=== PATIENT | female | born 1980 | race Caucasian/White ===

== ENCOUNTER 2017-11-13 18:25 | Emergency (ER) | payer MEDICAID ==
--- NOTE | 2017-11-13 19:59 | ED Physician Documentation ---
History of Present Illness - Stated complaint Stated Complaint: R KNEE PX - Chief complaint Chief Complaint: Ext Problem - History obtained from History obtained from: Patient, Family - History of Present Illness Timing: How many weeks ago (1) Pain level max: 6 Pain level now: 6 - Additonal information Additional information: Patient is a 37-year-old female who states that she fell approximately 1 week ago and has been having pain to the right knee ever since. Describes it as a burning/tearing type of pain. Worse with ambulation, better with rest. States she feels like her knee is giving out on her from time to time. Review of Systems Constitutional: denies: Fever, Chills Nose: denies: Rhinorrhea / runny nose, Congestion Respiratory: denies: Cough GI: denies: Abdominal Pain, Nausea, Vomiting : denies: Dysuria, Frequency, Hesitancy, Now [facility] PD PAST MEDICAL HISTORY - Past Medical History Past Medical History: No - Past Surgical History Past Surgical History: Yes - Present Medications Home Medications: Ambulatory Orders Medication Instructions Recorded Confirmed Oxycodone HCl/Acetaminophen 1 - 2 each PO Q6H PRN #14 tablet 11/13/17 [Percocet 5-325 mg Tablet] - Allergies Allergies/Adverse Reactions: Allergies Allergy/AdvReac Type Severity Reaction Status Date / Time gabapentin Allergy Dizziness Verified 11/13/17 18:40 - Social History Does the pt smoke?: No Smoking Status: Never smoker Does the pt have substance abuse?: No - Immunizations Immunizations are current?: Yes PD ED PE NORMAL - Vitals Vital signs reviewed: Yes - General General: Alert and oriented X 3, No acute distress, Well developed/nourished - HEENT HEENT: PERRL, Moist mucous membranes - Neck Neck: Supple, no meningeal sign - Cardiac Cardiac: RRR, Strong equal pulses - Respiratory Respiratory: No respiratory distress, Clear bilaterally - Derm Derm: Warm and dry - Extremities Extremities: Other (R knee - Full range of motion present in the knee. There is tenderness along the lateral aspect of the knee, laxity to the lateral collateral ligament. ACL, MCL, PCL are intact. Mild joint effusion. Otherwise normal examination of the knee. Neurovascularly intact) - Neuro Neuro: Alert and oriented X 3 - Psych Psych: Normal mood, Normal affect Results - Vitals Vitals: Vital Signs - 24 hr 11/13/17 11/13/17 18:34 21:41 Temperature 36.8 C Heart Rate 81 89 Respiratory 16 16 Rate Blood Pressure 136/79 H 121/84 H O2 Saturation 99 99 - Rads (name of study) Right knee x-ray Radiology: Prelim report reviewed, EMP read contemporaneously, See rad report ( No acute abnormality) PD MEDICAL DECISION MAKING - ED course Complexity details: reviewed results, re-evaluated patient, considered differential, d/w patient, d/w family ED course: Patient is a 37-year-old female who presents to the emergency department what appears to be a right knee sprain, appears to involve the lateral collateral ligament. Placed in a hinged knee brace for comfort and she is ambulating well , she does request crutches as well and will allow her to utilize this for a few days. Will follow up closely with her doctor for further evaluation and care. Pain well controlled. Patient counseled regarding signs and symptoms for which I believe and urgent re-evaluation would be necessary. Patient with good understanding of and agreement to plan and is comfortable going home at this time This document was made in part using voice recognition software. While efforts are made to proofread this document, sound alike and grammatical errors may occur. Departure - Departure Disposition: 01 Home, Self Care Clinical Impression: Knee LCL sprain Qualifiers: Encounter type: initial encounter Laterality: right Qualified Code(s): S83.421A - Sprain of lateral collateral ligament of right knee, initial encounter Condition: Good Instructions: ED Sprain Knee Collateral Ligaments Follow-Up: your,doctor in 1 week [Other] Prescriptions: Oxycodone HCl/Acetaminophen [Percocet 5-325 mg Tablet] 1 - 2 each PO Q6H PRN # 14 tablet PRN Reason: pain Comments: Return if you worsen. Wear the brace until you see your doctor. This should improve over the next few days. Do not drink alcohol or drive while on narcotic pain medicine. Note that many narcotic pain relievers also contain tylenol/acetaminophen. Please ensure that your total dose of acetaminophen from all sources does not exceed 3 grams (3000mg) per day. You may constipated on this medication, take a stool softener such as "Colace" twice a day while you are on it. Also recommend a jeqd-vnn-gkjczka laxative such as senna or MiraLAX any day that you do not have a bowel movement. If you received narcotic pain medication in the emergency department, do not drive or operate machinery for the next 24 hours. Discharge Date/Time: 11/13/17 21:41
[2017-11-13] MEDS ORDERED: HYDROcod/ACETAM 5/325 MG TABLET PO STA (20:06)
[2017-11-13] MEDS ORDERED: oxyCOD/ACETAMIN 5 MG/325 MG TABLET PO STA ×2 (20:12→21:35)
--- NOTE | 2017-11-13 21:05 | XRAY Preliminary Report ---
Exam: XR KNEE 4 VIEW RT IMPRESSION: Normal examination. No degenerative or inflammatory arthritis, posttraumatic abnormality or other demonstrated cause for persistent knee pain. [facility] SITE ID: [id number]
--- NOTE | 2017-11-13 21:07 | XRAY Report ---
EXAM: RIGHT KNEE RADIOGRAPHY, 4 VIEWS EXAM DATE: 11/13/2017 08:10 PM. CLINICAL HISTORY: 37-year-old female with two-week history of right knee pain. No known trauma. COMPARISON: None. TECHNIQUE: Frontal, both oblique and lateral views. FINDINGS: Bones: Normal. No fractures or bone lesions. Joints: Normal. No effusion. No subluxations. Soft Tissues: Normal. No soft tissue swelling. IMPRESSION: Normal examination. No degenerative or inflammatory arthritis, posttraumatic abnormality or other demonstrated cause for persistent knee pain. [facility] Referring Provider Line: [phone] SITE ID: [id number]
[2017-11-13 21:42] VITALS: BP 121/84
== END 2017-11-13 21:41 | disposition home or self-care (01) ==
LOC: ED 18:25
DX: S83.421A Sprain of lateral collateral ligament of right knee, initial encounter (principal); W19.XXXA Unspecified fall, initial encounter
CPT/HCPCS: 73564; 99283; A9270